=== PATIENT | male | born 1990 | race American Indian/Alaskan Native ===

== ENCOUNTER 2021-01-23 09:41 | Emergency (ER) | payer MEDICAID ==
[2021-01-23] MEDS ORDERED: Albuterol/Ipratropium 3.0-0.5 MG/3 ML Neb Soln NEB ONE (09:50)
--- NOTE | 2021-01-23 10:38 | EDM.PDOC ---
ED HPI GENERAL MEDICAL PROBLEM - General Chief Complaint: Respiratory Problem Stated Complaint: SOB,COUGH FEVER Time Seen by Provider: 01/23/21 09:50 Source of Information: Reports: Patient History Limitations: Reports: No Limitations - History of Present Illness INITIAL COMMENTS - FREE TEXT/NARRATIVE: Patient presented to the Ed because of cough and cold, fever, chills, malaise and pleuritic chest pain. the cough is productive of yellowis to greenish phlegm. There is no N/V/D. No sick exposure and not vaccinated with Covid. He is otherwise healthy and is not taking any medication. Treatments BROKERAGE COORDINATOR: Reports: Acetaminophen, Cold Therapy Generalized Pain Score (Numeric/FACES): 7 - Related Data Allergies Allergy/AdvReac Type Severity Reaction Status Date / Time No Known Allergies Allergy Verified 01/23/21 09:48 Home Meds: Home Meds NK [No Known Home Meds] 01/23/21 [History] Past Medical History - Past Health History Medical/Surgical History: Denies Medical/Surgical History Social & Family History - Family History Family Medical History: No Pertinent Family History - Tobacco Use Tobacco Use Status *Q: Current Every Day Tobacco User Years of Tobacco use: 1 Packs/Tins Daily: 1 - Caffeine Use Caffeine Use: Reports: Soda - Recreational Drug Use Recreational Drug Use: No ED ROS GENERAL - Review of Systems Review Of Systems: See Below Constitutional: Reports: Fever, Chills, Malaise, Weakness HEENT: Reports: No Symptoms Respiratory: Reports: Shortness of Breath, Cough, Sputum Cardiovascular: Reports: Chest Pain Endocrine: Reports: No Symptoms GI/Abdominal: Reports: No Symptoms : Reports: No Symptoms Musculoskeletal: Reports: No Symptoms Skin: Reports: No Symptoms Neurological: Reports: No Symptoms Psychiatric: Reports: No Symptoms Hematologic/Lymphatic: Reports: No Symptoms ED EXAM, GENERAL - Physical Exam Exam: See Below Exam Limited By: No Limitations General Appearance: Alert, No Apparent Distress Ears: Normal External Exam, Normal Canal, Normal TMs Nose: Normal Inspection, Normal Mucosa, No Blood Throat/Mouth: Normal Inspection, Normal Lips, Normal Teeth, Normal Oropharynx, Normal Voice Head: Atraumatic, Normocephalic Neck: Normal Inspection, Supple Respiratory/Chest: No Respiratory Distress, No Accessory Muscle Use, Chest Non- Tender, Decreased Breath Sounds Cardiovascular: Normal Peripheral Pulses, Regular Rate, Rhythm, No Edema, No JVD, No Murmur, No Rub GI/Abdominal: Normal Bowel Sounds, Soft, Non-Tender, No Distention, No Abnormal Bruit, No Mass Back Exam: Normal Inspection, Full Range of Motion Extremities: Normal Inspection, Normal Range of Motion, Non-Tender, No Pedal Edema, Normal Capillary Refill Neurological: Alert, Oriented, CN II-XII Intact, Normal Cognition, Normal Gait, Normal Reflexes, No Motor/Sensory Deficits Psychiatric: Normal Affect, Normal Mood Course - Vital Signs Text/Narrative:: COVID-positive FLU A/B-negative CXR-Covid pneumonia Duoneb X 1 Last Recorded V/S: Last Vital Signs Temp 36.7 C 01/23/21 09:41 Pulse 87 01/23/21 09:41 Resp 20 01/23/21 09:41 BP 115/67 01/23/21 09:41 Pulse Ox 92 L 01/23/21 09:41 - Orders/Labs/Meds Orders: Active Orders 24 hr Category Date Time Status RT Aerosol Therapy [RC] ASDIRECTED Care 01/23/21 09:50 Active Chest 1V Frontal [CR] Stat Exams 01/23/21 09:49 Taken Isolation [COMM] Routine Oth 01/23/21 09:49 Ordered Labs: Laboratory Tests 01/23/21 Range/Units 09:58 SARS-CoV-2 RNA (HELEN) Positive H (NEGATIVE) Meds: Medications Discontinued Medications Generic Name Dose Route Start Last Admin Trade Name David PRN Reason Stop Dose Admin Albuterol/Ipratropium 3 ml 01/23/21 09:50 01/23/21 10:00 Albuterol/Ipratropium 3.0-0.5 Mg/3 Ml Neb Soln NEB 01/23/21 09:51 3 ml ONETIME ONE Administration Departure - Departure Time of Disposition: 11:00 Disposition: Home, Self-Care 01 Condition: Good Clinical Impression: Asymptomatic COVID-19 virus infection - Discharge Information Forms: ED Department Discharge Additional Instructions: Please read discharge instructions on Covid infection Quarantine yourself for 10-14 days Drink at least 2 liters of water daily Take Vit C,D, and Zinc daily Ibuprofen 800 mg with tylenol 1000 mg every 8 hours as needed for pain/fever Albuterol Inhaler 2 puffs every 4-6 hours as needed for shortness of breath Follow up as needed Sepsis Event Note (ED) - Evaluation Sepsis Screening Result: No Definite Risk - Focused Exam Vital Signs: Vital Signs Temp Pulse Resp BP Pulse Ox 01/23/21 09:41 36.7 C 87 20 115/67 92 L - My Orders Last 24 Hours: My Active Orders 01/23/21 09:49 Chest 1V Frontal [CR] Stat Isolation [COMM] Routine 01/23/21 09:50 RT Aerosol Therapy [RC] ASDIRECTED - Assessment/Plan Last 24 Hours: My Active Orders 01/23/21 09:49 Chest 1V Frontal [CR] Stat Isolation [COMM] Routine 01/23/21 09:50 RT Aerosol Therapy [RC] ASDIRECTED
== END 2021-01-23 11:18 | disposition home or self-care (01) ==
LOC: FB.ED 09:41
DX: U07.1 COVID-19 (principal); Z72.0 Tobacco use
CPT/HCPCS: 71045; 87804; 87804-59; 99284-25; J7620-GY; U0002

== ENCOUNTER 2021-07-18 11:25 | Emergency (ER) | payer BC, MEDICAID ==
[~2021-07-18 11:25] MED LIST: LORazepam 2 MG/ML SDV IVPUSH ONE; Sodium Chloride 0.9% 1,000 ML IV ONE; Sodium Chloride 0.9% 10 ML Syringe FLUSH PRN
[2021-07-18] MEDS ORDERED: Ondansetron 4 MG/2 ML SDV IVPUSH STA (12:32)
[2021-07-18] MEDS ORDERED: Diazepam 5 MG Tab PO STA (12:47)
== END 2021-07-18 13:10 ==
LOC: FB.ED 11:25
DX: F10.239 Alcohol dependence with withdrawal, unspecified (principal); Z91.013 Allergy to seafood; Y90.0 Blood alcohol level of less than 20 mg/100 ml
CPT/HCPCS: 36415; 80053; 80307; 85025; 96374; 96375; 99285; A9270; J2060; J2405; J7030

== ENCOUNTER 2023-01-20 19:23 | Emergency (ER) | payer SELFPAY ==
[2023-01-20 19:55] LABS: BASOPHILS PERCENT AUTO 0.4 % (0.3-3.8); EOSINOPHILS PERCENT AUTO 0.2 % (0.1-6.8); HEMATOCRIT 47.2 % (38.3-50.1); HEMOGLOBIN 16.6 g/dL (12.9-17.7); LYMPHOCYTES ABSOLUTE AUTO 2.9 x10-3/uL (0.5-4.5); LYMPHOCYTES PERCENT AUTO 36.5 % (15.8-45.3); MEAN CORPUSCULAR HEMOGLOBIN 31.6 pg (27.0-33.3); MEAN CORPUSCULAR HGB CONC 35.1 g/dL (28.7-35.3); MEAN CORPUSCULAR VOLUME 90.1 fL (80.8-98.7); MEAN PLATELET VOLUME 7.2 fL (6.7-11.0); MONOCYTES ABSOLUTE AUTO 0.4 x10-3/uL (0.0-1.2); MONOCYTES PERCENT AUTO 4.4 % (5.5-15.2); NEUTROPHILS ABSOLUTE AUTO 4.6 x10-3/uL (1.7-6.9); NEUTROPHILS PERCENT AUTO 58.5 % (40.3-71.8); PLATELET COUNT,PLT 293 x10(3)uL (117-477); RED BLOOD CELL COUNT 5.24 x10(6)uL (3.90-5.90); RED CELL DISTRIBUTION WIDTH 13.4 % (12.4-15.0); WHITE BLOOD CELL COUNT,WBC 7.9 x10-3/uL (3.2-10.1)
[2023-01-20 19:59] LABS: BLOOD UREA NITROGEN,BUN 13 mg/dL (7-18); BUN/CREATININE RATIO 14.4 (9-20); CALCIUM 8.7 mg/dL (8.6-10.2); CARBON DIOXIDE,CO2 26 mmol/L (21-32); CHLORIDE,CL 99 mmol/L (100-110); CREATININE 0.9 mg/dL (0.70-1.30); ESTIMATED GFR 115 mL/min (>60); GLUCOSE RANDOM 304 mg/dL (80-116); POTASSIUM,K 3.5 mmol/L (3.5-5.3); SODIUM,NA 139 mmol/L (135-145)
[2023-01-20 20:11] LABS: A/G RATIO 0.9; ALBUMIN 4.3 g/dL (3.5-5.2); ALKALINE PHOSPHATASE 117 IU/L (56-112); BILIRUBIN TOTAL 1.3 mg/dL (0.1-1.3); ETHANOL BLOOD MEDICAL 0.36 % (<0.03); PROTEIN TOTAL,TP 8.9 g/dL (6.0-8.0)
[2023-01-20 20:12] LABS: ALANINE AMINOTRANSFERASE,ALT 254 U/L (12-36); ASPARTATE AMNIOTRANSFERASE,AST 178 IU/L (5-25)
== END 2023-01-20 21:19 | disposition home or self-care (01) ==
LOC: FB.ED 19:23
DX: F10.20 Alcohol dependence, uncomplicated (principal); Z91.013 Allergy to seafood; Z86.16 Personal history of COVID-19; Z79.899 Other long term (current) drug therapy
CPT/HCPCS: 36415; 80053; 80307; 83690; 85025; 99283; 99284

== ENCOUNTER 2025-02-11 17:49 | Emergency (ER) | payer BC, OTHER ==
[2025-02-11 18:25] LABS: BASOPHILS ABSOLUTE AUTO 0.0 x10-3/uL (0.0-0.3); BASOPHILS PERCENT AUTO 0.4 % (0.3-3.8); EOSINOPHILS ABSOLUTE AUTO 0.1 x10-3/uL (0.0-0.6); EOSINOPHILS PERCENT AUTO 1.3 % (0.1-6.8); LYMPHOCYTES ABSOLUTE AUTO 2.1 x10-3/uL (0.5-4.5); LYMPHOCYTES PERCENT AUTO 28.6 % (15.8-45.3); MEAN PLATELET VOLUME 7.5 fL (6.7-11.0); MONOCYTES ABSOLUTE AUTO 0.5 x10-3/uL (0.0-1.2); MONOCYTES PERCENT AUTO 6.5 % (5.5-15.2); NEUTROPHILS ABSOLUTE AUTO 4.6 x10-3/uL (1.7-6.9); NEUTROPHILS PERCENT AUTO 63.2 % (40.3-71.8); PLATELET COUNT,PLT 228 x10(3)uL (117-477); RED BLOOD CELL COUNT 5.03 x10(6)uL (3.90-5.90); RED CELL DISTRIBUTION WIDTH 13.2 % (12.4-15.0); WHITE BLOOD CELL COUNT,WBC 7.3 x10-3/uL (3.2-10.1)
[2025-02-11 18:29] LABS: BLOOD UREA NITROGEN,BUN 9 mg/dL (7-18); CARBON DIOXIDE,CO2 28 mmol/L (21-32); CHLORIDE,CL 103 mmol/L (100-110); CREATININE 0.8 mg/dL (0.70-1.30); ESTIMATED GFR 118 mL/min (>60); GLUCOSE RANDOM 180 mg/dL (80-116); POTASSIUM,K 3.8 mmol/L (3.5-5.3); SODIUM,NA 140 mmol/L (135-145)
[2025-02-11 18:40] LABS: A/G RATIO 1.0; ASPARTATE AMNIOTRANSFERASE,AST 105 IU/L (5-25); BILIRUBIN TOTAL 0.9 mg/dL (0.1-1.3); PROTEIN TOTAL,TP 7.2 g/dL (6.0-8.0)
[2025-02-11 18:41] LABS: ALANINE AMINOTRANSFERASE,ALT 190 U/L (12-36)
== END 2025-02-11 19:00 ==
LOC: FB.ED 17:49
DX: F10.239 Alcohol dependence with withdrawal, unspecified (principal); R74.01 Elevation of levels of liver transaminase levels; Z91.013 Allergy to seafood; Z79.899 Other long term (current) drug therapy; Z86.16 Personal history of COVID-19
CPT/HCPCS: 36415; 80053; 83690; 83735; 85025; 99285; A9270